=== PATIENT | female | born 2000 | race Asian ===

== ENCOUNTER 2024-11-20 03:03 | Emergency (ER) | payer OTHER ==
[2024-11-20 03:19] VITALS: TEMP 97.7
[2024-11-20] MEDS ORDERED: XYLOCAINE VISCOUS 2% 15 ML CUP ONE (03:33)
[2024-11-20] MEDS ORDERED: MAALOX ES 30 ML UNIT DOSE ONE (03:33)
--- NOTE | 2024-11-20 03:46 | ERPHSYRPT ---
- History of Present Illness Time Seen by Provider: 11/20/24 03:15 Historian: patient Exam Limitations: no limitations Patient Subjective Stated Complaint: PT. STATES, "I WAS ATE SOME SPICY RAMEN AND WENT TO BED AND STARTED HAVING BAD PAIN IN MY UPPER BELLY. I'VE HAD THIS BEFORE BUT NEVER THIS BAD." Triage Nursing Assessment: PT. ARRIVES VIA AMBULANCE, SHE IS A&OX3, SKIN P/W/D, RESP. EVEN SLIGHTLY LABORED SECONDARY TO PAIN. GUARDING HER EPIGASTRIC REGION, GRIMACING IN PAIN. ABLE TO MOVE ALL 4 EXT. WITHOUT DIFF. Physician History: This is a 24-year-old [place] female patient who arrives to the emergency department transported by the paramedics secondary to epigastric pain that was relatively sudden onset and intense with a pain level of 8 out of 10. Patient has no primary care provider. She describes the pain as sharp and burning. Patient did eat spicy Ramen noodles last evening. The pain woke her up from sleep. She has had similar symptoms in the past but never this intense. Patient has no known medical illnesses. She has no known drug allergies. She takes no medications chronically. She has no known coronary artery disease. She does not chew or smoke tobacco. She does not take NSAIDs often or chronically. Timing/Duration: today Quality: burning, sharpness Abdominal Pain Onset Location: epigastric Pain Radiation: no radiation Severity of Pain-Max: mild (To moderate) Severity of Pain-Current: mild (To moderate) Associated Symptoms: chest pain, heartburn, nausea, No fever/chills, No vomiting Previous symptoms: same symptoms as today, no recent treatment Hx Tetanus, Diphtheria Vaccination/Date Given: No Hx Influenza Vaccination/Date Given: No Hx Pneumococcal Vaccination/Date Given: No Immunizations Up to Date: No Travel Risk - International Travel Have you traveled outside of the country in past 3 weeks: No - Emerging Infectious Disease Are you exhibiting symptoms associated with any current EIDs: No - Review of Systems Constitutional: No Symptoms Eyes: No Symptoms Ears, Nose, & Throat: No Symptoms Respiratory: No Symptoms Cardiac: No Symptoms Abdominal/Gastrointestinal: Abdominal Pain (Epigastric pain) Genitourinary Symptoms: No Symptoms Musculoskeletal: No Symptoms Skin: No Symptoms Neurological: No Symptoms Psychological: No Symptoms Endocrine: No Symptoms Hematologic/Lymphatic: No Symptoms Immunological/Allergic: No Symptoms All Other Systems: Reviewed and Negative - Past Medical History Pertinent Past Medical History: No Neurological History: No Pertinent History ENT History: No Pertinent History Cardiac History: No Pertinent History Respiratory History: No Pertinent History Endocrine Medical History: No Pertinent History Musculoskeletal History: No Pertinent History GI Medical History: No Pertinent History History: No Pertinent History Psycho-Social History: No Pertinent History Female Reproductive Disorders: No Pertinent History - Past Surgical History Past Surgical History: No - Female History Hx Last Menstrual Period: 2 WKS AGO Hx Now: No - Social History Smoking Status: Never smoker Exposure to second hand smoke: Yes Drug Use: none - Social Determinants of Health Will the patient participate in the screening: Declined to provide - Nursing Vital Signs Nursing Vital Signs: Initial Vital Signs Temperature 97.7 F 11/20/24 03:06 Pulse Rate 68 11/20/24 03:06 Respiratory Rate 18 11/20/24 03:06 Blood Pressure 121/87 11/20/24 03:06 O2 Sat by Pulse Oximetry 100 11/20/24 03:06 Pain Scale Pain Intensity 8 - Physical Exam General Appearance: no apparent distress, alert, anxiety Eye Exam: PERRL/EOMI, eyes nml inspection Ears, Nose, Throat Exam: normal ENT inspection, moist mucous membranes Neck Exam: normal inspection, non-tender, supple, full range of motion Respiratory Exam: normal breath sounds, lungs clear, airway intact, No chest tenderness, No respiratory distress Cardiovascular Exam: regular rate/rhythm, normal heart sounds, normal peripheral pulses Gastrointestinal/Abdomen Exam: soft, normal bowel sounds, tenderness (Gastrium), No guarding, No rebound Pelvic Exam: not done Rectal Exam: not done Back Exam: normal inspection, normal range of motion, No CVA tenderness, No vertebral tenderness Extremity Exam: normal inspection, normal range of motion, pelvis stable Neurologic Exam: alert, oriented x 3, cooperative, 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 tested, sensation nml Skin Exam: normal color, warm, dry Lymphatic Exam: No adenopathy SpO2 Interpretation: normal SpO2: 100 O2 Delivery: Room Air - Course Nursing assessment & vital signs reviewed: Yes Ordered Tests: Active Orders 24 hr Category Date Time Status EKG-ER Only STAT Care 11/20/24 03:37 Active IV Insertion STAT Care 11/20/24 03:37 Active ABDOMEN AND PELVIS W/0 CONTRAS [CT] Stat Exams 11/20/24 03:37 Completed AMYLASE Stat Lab 11/20/24 03:46 Completed CBC W DIFF Stat Lab 11/20/24 03:46 Completed CMP Stat Lab 11/20/24 03:46 Completed CULTURE,URINE Stat Lab 11/20/24 04:56 Received HCG QUALITATIVE, SERUM Stat Lab 11/20/24 03:46 Completed TROPONIN Q4H Lab 11/20/24 03:46 Completed TROPONIN Q4H Lab 11/20/24 07:45 Ordered TROPONIN Q4H Lab 11/20/24 11:45 Ordered UA W/RFX UR CULTURE Stat Lab 11/20/24 04:56 Completed Medication Summary Discontinued Medications Generic Name Dose Route Start Last Admin Trade Name Freq PRN Reason Stop Dose Admin Al Hydrox/Mg Hydrox/Simethicone Confirm 11/20/24 03:33 Mag Hydrox/Al Hydrox/Simeth 30 Ml Udcup Administered 11/20/24 03:34 Dose 30 ml .ROUTE .STK-MED ONE Cephalexin HCl 500 mg 11/20/24 05:55 Cephalexin Mh500 Mg Capsule PO 11/20/24 05:56 STAT ONE Hydromorphone HCl 0.5 mg 11/20/24 03:37 11/20/24 05:22 Hydromorphone 1 Mg/1ml Inj IV 11/20/24 03:38 0.5 mg STAT ONE Administration Hydromorphone HCl Confirm 11/20/24 03:48 Hydromorphone 1 Mg/1ml Inj Administered 11/20/24 03:49 Dose 1 mg .ROUTE .STK-MED ONE Hydromorphone HCl Confirm 11/20/24 05:09 Hydromorphone 1 Mg/1ml Inj Administered 11/20/24 05:10 Dose 1 mg .ROUTE .STK-MED ONE Sodium Chloride 1,000 mls @ 999 mls/hr 11/20/24 03:37 11/20/24 04:52 Sodium Chloride 0.9% 1000 Ml IV 11/20/24 04:37 Infused .Q1H1M STA Infusion Sodium Chloride Confirm 11/20/24 03:48 Sodium Chloride 0.9% 1000 Ml Administered 11/20/24 03:49 Dose 1,000 mls @ ud .ROUTE .STK-MED ONE Lidocaine HCl Confirm 11/20/24 03:33 Lidocaine Hcl 2% Viscous 15 Ml Udcup Administered 11/20/24 03:34 Dose 15 ml .ROUTE .STK-MED ONE Magnesium Hydroxide 45 ml 11/20/24 03:37 11/20/24 05:24 Mag Hydrx/Alum Hyd/Simeth/Lido 45 Ml Bottle PO 11/20/24 03:38 45 ml STAT ONE Administration Ondansetron HCl 4 mg 11/20/24 03:37 11/20/24 03:51 Ondansetron Hcl 4 Mg/2 Ml Vial IV 11/20/24 03:38 4 mg STAT ONE Administration Ondansetron HCl Confirm 11/20/24 03:47 Ondansetron Hcl 4 Mg/2 Ml Vial Administered 11/20/24 03:48 Dose 4 mg .ROUTE .STK-MED ONE Pantoprazole Sodium 40 mg 11/20/24 03:37 11/20/24 03:50 Pantoprazole 40 Mg Vial IV 11/20/24 03:38 40 mg STAT ONE Administration Pantoprazole Sodium Confirm 11/20/24 03:47 Pantoprazole 40 Mg Vial Administered 11/20/24 03:48 Dose 40 mg IV .STK-MED ONE Lab/Rad Data: Laboratory Result Diagrams 11/20/24 03:46 11/20/24 03:46 Laboratory Results 11/20/24 11/20/24 11/20/24 Range/Units 04:56 03:46 03:46 WBC (3.98-10.04) x10^3/uL RBC (3.93-5.22) x10^6/uL Hgb (11.2-15.7) g/dL Hct (34.1-44.9) % MCV (79.4-94.8) fL MCH (25.6-32.2) pg MCHC (32.2-35.5) g/dL RDW (11.7-14.4) % Plt Count (182-369) x10^3/uL MPV (9.4-12.3) fL Gran % (34.0-71.1) % Immature Gran % (Auto) (0.001-0.429) % Nucleat RBC Rel Count (0.00-0.2) % Eos # (Auto) (0.04-0.36) x10^3/uL Immature Gran # (Auto) (0.001-0.031) x10^3u/L Absolute Lymphs (auto) (1.18-3.74) x10^3/uL Absolute Monos (auto) (0.24-0.86) x10^3/uL Absolute Nucleated RBC (0.00-0.012) x10^3u/L Lymphocytes % (19.3-51.7) % Monocytes % (4.7-12.5) % Eosinophils % (0.7-5.8) % Basophils % (0.1-1.2) % Absolute Granulocytes (1.56-6.13) x10^3/uL Basophils # (0.01-0.08) x10^3/uL Sodium (135-145) mmol/L Potassium (3.5-5.1) mmol/L Chloride (98-107) mmol/L Carbon Dioxide (22-30) mmol/L Anion Gap (5-15) MEQ/L BUN (7-17) mg/dL Creatinine (0.52-1.04) mg/dL Estimated GFR ML/MIN Glucose (74-106) mg/dL Calcium (8.4-10.2) mg/dL Total Bilirubin (0.2-1.3) mg/dL AST (14-36) U/L ALT (0-35) U/L Alkaline Phosphatase (38-126) U/L Troponin I < 0.012 (0.000-0.033) ng/mL Serum Total Protein (6.3-8.2) g/dL Albumin (3.5-5.0) g/dL Amylase (30-110) U/L Serum HCG, Qual NEGATIVE (NEGATIVE) Urine Color Yellow (Yellow) Urine Appearance Clear (Clear) Urine pH 7.0 (4.6-8.0) Ur Specific [place] <=1.005 (1.005-1.030) Urine Protein Negative (Negative) Urine Glucose (UA) Negative (Negative) mg/dL Urine Ketones Negative (Negative) Urine Blood Negative (Negative) Urine Nitrite Negative (Negative) Urine Bilirubin Negative (Negative) Urine Urobilinogen 1.0 A (0.2) mg/dL Ur Leukocyte Esterase Trace A (Negative) U Hyaline Cast (Auto) NONE SEEN (0-2) /LPF Urine Microscopic RBC 3-5 (0-5) /HPF Urine Microscopic WBC 6-10 A (0-5) /HPF Ur Epithelial Cells Few (None Seen) /HPF Urine Bacteria Few A (None Seen) /HPF Urine Culture Reflexed YES (NO) 11/20/24 11/20/24 Range/Units 03:46 03:46 WBC 10.6 H (3.98-10.04) x10^3/uL RBC 4.74 (3.93-5.22) x10^6/uL Hgb 13.5 (11.2-15.7) g/dL Hct 40.7 (34.1-44.9) % MCV 85.9 (79.4-94.8) fL MCH 28.5 (25.6-32.2) pg MCHC 33.2 (32.2-35.5) g/dL RDW 12.1 (11.7-14.4) % Plt Count 452 H (182-369) x10^3/uL MPV 9.0 L (9.4-12.3) fL Gran % 73.0 H (34.0-71.1) % Immature Gran % (Auto) 0.4 (0.001-0.429) % Nucleat RBC Rel Count 0.0 (0.00-0.2) % Eos # (Auto) 0.13 (0.04-0.36) x10^3/uL Immature Gran # (Auto) 0.04 H (0.001-0.031) x10^3u/L Absolute Lymphs (auto) 2.02 (1.18-3.74) x10^3/uL Absolute Monos (auto) 0.62 (0.24-0.86) x10^3/uL Absolute Nucleated RBC 0.00 (0.00-0.012) x10^3u/L Lymphocytes % 19.1 L (19.3-51.7) % Monocytes % 5.9 (4.7-12.5) % Eosinophils % 1.2 (0.7-5.8) % Basophils % 0.4 (0.1-1.2) % Absolute Granulocytes 7.73 H (1.56-6.13) x10^3/uL Basophils # 0.04 (0.01-0.08) x10^3/uL Sodium 139 (135-145) mmol/L Potassium 4.0 (3.5-5.1) mmol/L Chloride 104 (98-107) mmol/L Carbon Dioxide 23 (22-30) mmol/L Anion Gap 16.5 H (5-15) MEQ/L BUN 5 L (7-17) mg/dL Creatinine 0.58 (0.52-1.04) mg/dL Estimated GFR 128.7 ML/MIN Glucose 94 (74-106) mg/dL Calcium 9.7 (8.4-10.2) mg/dL Total Bilirubin 0.30 (0.2-1.3) mg/dL AST 64 H (14-36) U/L ALT 32 (0-35) U/L Alkaline Phosphatase 73 (38-126) U/L Troponin I (0.000-0.033) ng/mL Serum Total Protein 7.4 (6.3-8.2) g/dL Albumin 4.4 (3.5-5.0) g/dL Amylase 71 (30-110) U/L Serum HCG, Qual (NEGATIVE) Urine Color (Yellow) Urine Appearance (Clear) Urine pH (4.6-8.0) Ur Specific [place] (1.005-1.030) Urine Protein (Negative) Urine Glucose (UA) (Negative) mg/dL Urine Ketones (Negative) Urine Blood (Negative) Urine Nitrite (Negative) Urine Bilirubin (Negative) Urine Urobilinogen (0.2) mg/dL Ur Leukocyte Esterase (Negative) U Hyaline Cast (Auto) (0-2) /LPF Urine Microscopic RBC (0-5) /HPF Urine Microscopic WBC (0-5) /HPF Ur Epithelial Cells (None Seen) /HPF Urine Bacteria (None Seen) /HPF Urine Culture Reflexed (NO) - Progress Progress: improved, re-examined Progress Note: 11/20/24 03:45 My medical decision making and the assignment of moderate complexity to this patient's medical issue today is based on review of the patient's past medical history, review the patient's medication list, reviewed patient drug allergy list, history present illness and physical findings on examination. The workup in this patient includes placement of intravenous line, infusion of normal saline solution, infusion of Zofran, infusion of Protonix, infusion of Dilaudid, GI cocktail orally, CBC, CMP, amylase, lipase, serum test, twelve- lead EKG, troponin level and CT scan of the abdomen pelvis without contrast. Differential diagnosis includes but is not limited to electrolyte abnormalities, arrhythmia, myocardial infarction, gastritis, gastric/peptic ulcer, gastroesophageal reflux disease, cholecystitis/cholelithiasis 11/20/24 05:57 I interpreted the patient's laboratory data results. Based on the laboratory data results, the patient has a urinary tract infection. There is a very slight leukocytosis present. No other acute, emergent medical issues. The CT scan of the abdomen pelvis was interpreted by the radiologist and I reviewed the impression. The impression states gallbladder without thickening, pericholecystic fluid or gallstones. The appendix is normal sized without fat stranding or appendicolith. Overall, normal findings without evidence of acute intra-abdominal or intrapelvic pathology. Counseled pt/family regarding: lab results, diagnosis, need for follow-up, rad results Medical Desision Making - Diagnostic Testing Diagnostic test were ordered, analyzed, and reviewed by me: Yes Radiological Interpretation: Reviewed by me, Teleradiologist Report - Risk of complications The pt has a mod risk of morbidity or mortality based on: Need for prescription drug management - Departure Departure Disposition: Home Clinical Impression: Urinary tract infection, Gastritis Condition: Stable Critical Care Time: No Referrals: DOCTOR,NO FAMILY [Primary Care Provider, UNKNOWN] - Follow up/PCP as directed Additional Instructions: Drink plenty of clear liquids before advancing your diet. Avoid fatty greasy spicy foods. Take your medications as prescribed. Call your primary care provider today, 11/20/2024, to make arrangements for follow-up appointment to be seen in the next 3 to 5 days for further evaluation and management. Prescriptions: Cephalexin Mh 500 mg [Keflex 500 mg] 500 mg PO TID #21 cap Famotidine 20 mg [Pepcid 20 MG] 20 mg PO DAILY #10 tablet
[2024-11-20] MEDS ORDERED: PROTONIX 40 MG IV IV ONE (03:47)
[2024-11-20] MEDS ORDERED: Zofran 4 MG/2 ML VIAL ONE ×2 (03:47→06:24)
[2024-11-20] MEDS ORDERED: Hydromorphone 1 mg/ml Injection ONE ×2 (03:48→05:09)
[2024-11-20] MEDS ORDERED: Sodium Chloride 0.9% 1000 ML 1,000 ML ONE (03:48)
[2024-11-20] MEDS: PROTONIX 40 MG IV IV ONE (03:50)
[2024-11-20] MEDS: Zofran 4 MG/2 ML VIAL IV ONE ×2 (03:51→06:24)
[2024-11-20] MEDS: Sodium Chloride 0.9% 1000 ML 1,000 ML IV STA (03:52)
[2024-11-20 04:09] LABS: ALBUMIN 4.4 g/dL (3.5-5.0); ANION GAP 16.5 MEQ/L (5-15); BILIRUBIN,TOTAL 0.3 mg/dL (0.2-1.3); Calcium 9.7 mg/dL (8.4-10.2); Creatinine 1 0.58 mg/dL (0.52-1.04); EST GLOMERULAR FILTRATION RATE 128.7 ML/MIN; HCG SERUM TEST NEGATIVE (NEGATIVE); Total Protein 7.4 g/dL (6.3-8.2)
[2024-11-20 04:13] LABS: Absolute Neutrophil Ct (ANC) 7.73 x10^3/uL (1.56-6.13); BASOPHIL % 0.4 % (0.1-1.2); Basophil (Absolute #) 0.04 x10^3/uL (0.01-0.08); Eosinophil % 1.2 % (0.7-5.8); Eosinophil (Absolute #) 0.13 x10^3/uL (0.04-0.36); Hematocrit 40.7 % (34.1-44.9); Hemoglobin 13.5 g/dL (11.2-15.7); IMMATURE GRAN # 0.04 x10^3u/L (0.001-0.031); IMMATURE GRAN % 0.4 % (0.001-0.429); Lymphocyte (Absolute #) 2.02 x10^3/uL (1.18-3.74); Lymphocytes % 19.1 % (19.3-51.7); Mean Cell Volume 85.9 fL (79.4-94.8); Mean Corpuscular Hemoglobin 28.5 pg (25.6-32.2); Mean Corpuscular Hgb Concent. 33.2 g/dL (32.2-35.5); Monocyte (Absolute #) 0.62 x10^3/uL (0.24-0.86); Monocytes % 5.9 % (4.7-12.5); Platelet Count 452 x10^3/uL (182-369); Red Blood Count 4.74 x10^6/uL (3.93-5.22); Red Cell Distribution Width 12.1 % (11.7-14.4); White Blood Count 10.6 x10^3/uL (3.98-10.04)
[2024-11-20 05:07] VITALS: RESP 18
[2024-11-20 05:14] LABS: Appearance Clear (Clear); Bacteria Few /HPF (None Seen); Bilirubin Negative (Negative); Blood Negative (Negative); Epithelial Cells Few /HPF (None Seen); Glucose, Urine Negative (Negative); Hyaline Casts NONE SEEN /LPF (0-2); Ketones Negative (Negative); Leukocyte Esterase Trace (Negative); Nitrite Negative (Negative); Protein,Urine Dip Negative (Negative); Specific Gravity <=1.005 (1.005-1.030)
--- NOTE | 2024-11-20 05:14 | XRAY ---
CLINICAL HISTORY: Epigastric abdominal pain COMPARISON: No prior studies available for comparison. TECHNIQUE: Non-contrast CT of the abdomen and pelvis was performed, with the following protocol: axial images, and reconstructed coronal and sagittal images. No intravenous contrast was administered. One of the following dose reduction techniques was utilized for this exam: Automated exposure control, adjustment of the mA and/or kV according to patient size, and use of iterative reconstruction. FINDINGS: Abdomen: Liver: Normal in size, shape, and density. No focal lesions, cysts, or masses were identified. Gallbladder and Biliary System: The gallbladder is normal in size and shape. No wall thickening, pericholecystic fluid, or gallstones were identified. Pancreas: Pancreatic head, body, and tail are visualized and appear normal in size and density. No pancreatic masses or calcifications were noted. Spleen: Normal in size, shape, and density. No splenic lesions or masses were identified. Kidneys and Adrenal Glands: Both kidneys are normal in size, shape, and position. Cortical thickness is within normal limits. No renal calculi or hydronephrosis. Adrenal glands are unremarkable. Appendix: The appendix is normal in size without debora appendiceal fat stranding and without an appendicolith. No evidence of appendiceal abscess or perforation. Pelvis: Urinary Bladder: Normal in contour and wall thickness. No intraluminal lesions. Uterus: Normal in size and contour. No masses or abnormal thickening. Both adnexa; are unremarkable, no solid or cystic lesions. Peritoneal and Retroperitoneal Structures: No free fluid or abnormal fluid collections were identified within the abdomen or pelvis. No lymphadenopathy was noted. Bowel: The visualized bowel loops are normal in caliber and appearance. No evidence of bowel obstruction or wall thickening. Bones and Soft Tissues: Pelvic bones and soft tissues are unremarkable. No fractures or abnormal masses were identified. IMPRESSION: Overall, non-contrast CT abdomen and pelvis demonstrate normal findings without evidence of acute intra-abdominal pathology. Clinical correlation is recommended for further evaluation. Electronically Signed by: Shireen Cavazos MD. (11/20/2024 05:10:38 EDT)
[2024-11-20] MEDS: Hydromorphone 1 mg/ml Injection IV ONE (05:22)
[2024-11-20] MEDS: GI COCKTAIL 45 ML (Maalox/Lidocaine) PO ONE (05:24)
[2024-11-20] MEDS ORDERED: KEFLEX 500 MG ONE (06:48)
[2024-11-20] MEDS: KEFLEX 500 MG PO ONE (07:24)
[2024-11-20 07:32] VITALS: BP 118/87; PULSE 88; O2SAT 99
== END 2024-11-20 07:44 | disposition home or self-care (01) ==
LOC: ED 03:03
DX: N39.0 Urinary tract infection, site not specified (principal); K29.70 Gastritis, unspecified, without bleeding; R10.13 Epigastric pain; Z79.899 Other long term (current) drug therapy
CPT/HCPCS: 36415; 74176; 80053; 81001; 82150; 84484; 84703; 85025; 87086; 93005; 96361; 96374; 96375; 96376; 99285; J1171; J2405; A9270-GY